=== PATIENT | female | born 1985 | race Caucasian/White ===

== ENCOUNTER 2019-04-14 18:34 | Inpatient (IN) ==
[2019-04-14] MEDS ORDERED: ONDANSETRON INJ 2 MG/ML 2 ML VIAL IV PRN (21:25)
[2019-04-14] MEDS ORDERED: LACTATED RINGER'S 1,000 ML IV ONE (21:25)
--- NOTE | 2019-04-14 21:28 | Labor Progress Brief Note ---
Date of Service April 14, 2019 here for labor check. CTX irreg. Cx 1cm, 50% after 2 checks about 2 hours apart. Sig nausea, so offered Iris, she agrees Results & Data Vital Signs (Past 12 Hours) Vital Signs Temp Pulse Resp BP 04/14/19 21:00 20 04/14/19 19:30 20 04/14/19 19:06 98.2 F 20 04/14/19 19:00 20 04/14/19 18:42 98.2 F 82 20 123/79
[2019-04-14] MEDS ORDERED: BUTORPHANOL TARTRATE 1 MG/ML VIAL IV PRN (22:35)
[2019-04-14] MEDS ORDERED: OXYTOCIN 30 UNITS/500 ML BAG IV PRN (22:38)
[2019-04-14] MEDS: LACTATED RINGER'S 1,000 ML IV PRN (22:59)
[2019-04-14 23:01] LABS: Hematocrit (blood only) 39.7 % (37-47); Hemoglobin 14.1 g/dL (12.0-16.0); Mean Corpuscular Hemoglobin 33.8 pg (25-34); Mean Corpuscular Hgb Conc 35.5 g/dL (32-36); Mean Corpuscular Volume 95.2 fL (80-100); Mean Platelet Volume 10.7 fL (7.4-10.4); Platelet Count 210 K/uL (130-400); RDW Coefficient of Variation 13.6 % (11.5-14.5); RDW Standard Deviation 47.2 fL (36.4-46.3); Red Blood Count 4.17 M/uL (4.2-5.4); White Blood Count 14.52 K/uL (4.8-10.8)
[2019-04-14] MEDS ORDERED: ePHEDrine sulfate 50 MG/ML AMP ONE (23:44)
[2019-04-14] MEDS ORDERED: fentaNYL citrate 100 MCG/2 ML VIAL ONE (23:44)
[2019-04-14] MEDS ORDERED: BUPIVACAINE 0.25% 30 ML VIAL ONE (23:45)
[2019-04-14] MEDS ORDERED: fentaNYL 2MCG/ML ROPIV 1.25MG/ML 100 ML BAG EPI ONE (23:45)
[2019-04-15] MEDS ORDERED: DiphenhydrAMINE HCL 50 MG/ML VIAL IV PRN (00:59)
[2019-04-15] MEDS ORDERED: ePHEDrine sulfate 50 MG/ML AMP IV PRN (00:59)
[2019-04-15] MEDS ORDERED: NALOXONE HCL 0.4 MG/1 ML VIAL/CARP IV PRN (00:59)
[2019-04-15] MEDS ORDERED: PROMETHAZINE HCL 6.25 MG in SODIUM CHLORIDE 0.9% 50 ML IV PRN (00:59)
[2019-04-15] MEDS ORDERED: NALOXONE HCL 1 MG in SODIUM CHLORIDE 0.9% 1000ML 1,000 ML IV PRN (00:59)
[2019-04-15] MEDS ORDERED: ONDANSETRON INJ 2 MG/ML 2 ML VIAL IV PRN (00:59)
[2019-04-15] MEDS ORDERED: NALBUPHINE HCL INJ 10 MG/ML AMP IV PRN (00:59)
[2019-04-15] MEDS ORDERED: fentaNYL 2MCG/ML ROPIV 1.25MG/ML 100 ML BAG EPI PRN (00:59)
--- NOTE | 2019-04-15 01:05 | Anesthesiology Consultation ---
Date of Service April 15, 2019 Assessment & Plan (1) Encounter for pre-operative examination: Chart Review Chart Review: Acceptable Risk for Surgery and Patient NOT seen in Pre Admission Testing Consults Requested none ASA ASA2 Proposed Anesthesia Anesthesia Type: Labor Epidural Risk / Benefits Reviewed With: PT / POA / Parent / Guardian, Accepts Plan and Informed Consent Obtained History Height/Weight Height: 5 ft 2 in Weight: 73.482 kg Allergies Allergy/AdvReac Type Severity Reaction Status Date / Time No Known Drug Allergies Allergy Verified 04/02/19 08:45 Medications Home Medications Medication Instructions Recorded Confirmed Last Taken PNV [id number]#95-ferrous fumarate-FA 1 tab PO DAILY 04/14/19 04/14/19 04/14/19 [] ferrous gluconate 236 mg PO DAILY 04/14/19 04/14/19 04/14/19 Active Medications Generic Name Dose Route Start Last Admin Trade Name Freq PRN Reason Stop Dose Admin Lactated Ringer's 1,000 mls @ 125 mls/hr 04/14/19 22:38 04/15/19 00:58 Lr IV 04/16/19 22:37 999 mls/hr .Q8H PRN Infusion L&D Protocol Protocol Ondansetron HCl 4 mg 04/14/19 21:25 04/14/19 21:41 Zofran IV 05/14/19 21:24 4 mg Q4H PRN Administration Nausea Past Medical History Medical History H/O wisdom tooth extraction (~10/30/13) Varicella Exercise / Class Metabolic Activity II 4-5 Yardwork/Stairs/Walk up hill Past Family History Family History Father Depression Aunt Breast cancer Grandmother (Paternal) Breast cancer Grandfather (Maternal) Hypertension Mother Ovarian cyst Past Surgical History Surgical History No pertinent past surgical history Past Anesthesia History No Hx of Anesthesia Complications and No Family Hx of Anesthesia Complications History of PONV No Hx of PONV and No Hx of Motion Sickness Social History Smoking Status: Never smoker Hx Alcohol Use: No Hx Substance Use: No Physical Exam Vital Signs Last Vital Signs Temp 36.4 C L 04/15/19 00:38 Pulse 92 H 04/15/19 01:03 Resp 20 04/15/19 00:38 BP 119/76 04/15/19 01:00 Pulse Ox 100 04/15/19 01:03 ENMT Mouth: no dentition abnormality Thyromental Distance: > or= 3.5 Finger Breadths Mallampati Class: II Neck normal visual inspection Respiratory normal respiratory effort Auscultation: lungs clear to auscultation bilaterally Cardiovascular Rate/Rhythm: regular rate and regular rhythm Psychiatric Orientation: alert Testing Laboratory Results 04/14/19 22:48
[2019-04-15] MEDS: LACTATED RINGER'S 1,000 ML IV PRN (03:02)
--- NOTE | 2019-04-15 06:51 | Labor Progress Brief Note ---
Date of Service April 15, 2019 heart rate category 1 patient has epidural she is doing well she has a bulging bag of membranes it was not sure her membranes ruptured last night as well she is fully dilated -1 station she is comfortable at this time Results & Data Vital Signs (Past 12 Hours) Vital Signs Temp Pulse Resp BP Pulse Ox 04/15/19 06:48 105 H 96 04/15/19 06:45 99.0 F 18 04/15/19 06:43 98 H 95 04/15/19 06:41 98 H 90 04/15/19 06:38 91 H 93 04/15/19 06:36 109 H 112/55 L 04/15/19 06:33 91 H 92 04/15/19 06:28 94 H 93 04/15/19 06:27 96 H 110/56 L 04/15/19 06:23 97 H 94 04/15/19 06:18 90 92 04/15/19 06:16 93 H 104/53 L 04/15/19 06:13 99 H 91 04/15/19 06:12 99 H 90 04/15/19 06:08 92 H 93 04/15/19 06:07 90 110/53 L 04/15/19 06:03 97 H 92 04/15/19 05:58 97 H 93 04/15/19 05:56 98 H 108/53 L 04/15/19 05:53 94 H 93 04/15/19 05:48 95 H 94 04/15/19 05:46 90 104/52 L 04/15/19 05:43 96 H 91 04/15/19 05:38 95 H 93 04/15/19 05:37 90 101/50 L 04/15/19 05:33 95 H 92 04/15/19 05:28 99 H 94 04/15/19 05:26 100 H 105/59 L 04/15/19 05:23 106 H 92 04/15/19 05:18 103 H 100 04/15/19 05:16 96 H 125/68 04/15/19 05:13 106 H 96 04/15/19 05:10 120 H 79 L 04/15/19 05:08 113 H 99 04/15/19 05:07 102 H 133/72 04/15/19 05:03 103 H 97 04/15/19 04:58 113 H 98 04/15/19 04:57 123 H 131/83 04/15/19 04:53 104 H 98 04/15/19 04:48 103 H 97 04/15/19 04:47 98 H 125/79 04/15/19 04:43 107 H 97 04/15/19 04:38 106 H 97 04/15/19 04:37 105 H 123/69 04/15/19 04:33 113 H 95 04/15/19 04:28 106 H 96 04/15/19 04:26 95 H 135/70 04/15/19 04:23 113 H 96 04/15/19 04:20 98.8 F 18 04/15/19 04:18 102 H 99 04/15/19 04:17 107 H 129/76 04/15/19 04:13 99 H 99 04/15/19 04:08 94 H 99 04/15/19 04:06 110 H 119/72 04/15/19 04:03 106 H 98 04/15/19 03:58 111 H 99 04/15/19 03:56 96 H 123/67 04/15/19 03:53 103 H 98 04/15/19 03:48 111 H 99 04/15/19 03:46 101 H 121/64 04/15/19 03:43 101 H 99 04/15/19 03:38 110 H 99 04/15/19 03:36 105 H 125/71 04/15/19 03:33 97 H 99 04/15/19 03:28 98 H 97 04/15/19 03:27 100 H 121/59 L 04/15/19 03:23 103 H 99 04/15/19 03:18 103 H 99 04/15/19 03:16 104 H 119/70 04/15/19 03:13 100 H 99 04/15/19 03:08 113 H 98 04/15/19 03:07 100 H 117/70 04/15/19 03:06 98 H 127/69 04/15/19 03:03 108 H 95 04/15/19 03:02 106 H 94 04/15/19 02:58 110 H 96 04/15/19 02:57 103 H 114/61 04/15/19 02:53 102 H 96 04/15/19 02:48 103 H 96 04/15/19 02:46 100 H 122/58 L 04/15/19 02:43 100 H 96 04/15/19 02:38 99 H 98 04/15/19 02:37 98.6 F 99 H 18 94 04/15/19 02:36 97 H 110/55 L 04/15/19 02:33 93 H 94 04/15/19 02:31 92 H 94 04/15/19 02:28 85 110/55 L 96 04/15/19 02:23 96 H 96 04/15/19 02:22 89 94 04/15/19 02:18 84 97 04/15/19 02:16 91 H 101/55 L 04/15/19 02:15 91 H 94 04/15/19 02:13 84 95 04/15/19 02:08 89 93 04/15/19 02:06 93 H 111/55 L 04/15/19 02:03 91 H 96 04/15/19 01:58 91 H 96 04/15/19 01:56 90 110/59 L 04/15/19 01:53 87 97 04/15/19 01:48 92 H 97 04/15/19 01:46 88 107/56 L 04/15/19 01:43 96 H 96 04/15/19 01:38 79 96 04/15/19 01:36 85 111/55 L 04/15/19 01:33 77 98 04/15/19 01:28 86 98 04/15/19 01:27 82 113/59 L 04/15/19 01:23 88 99 04/15/19 01:18 98 H 124/57 L 100 04/15/19 01:13 90 100 04/15/19 01:08 93 H 100 04/15/19 01:06 95 H 115/77 04/15/19 01:04 91 H 152/81 H 04/15/19 01:03 92 H 100 04/15/19 01:00 96 H 119/76 04/15/19 00:58 96 H 126/82 100 04/15/19 00:54 142 H 183/118 H 04/15/19 00:53 98 H 100 04/15/19 00:50 89 128/69 04/15/19 00:48 79 95 04/15/19 00:46 91 H 142/70 H 88 L 04/15/19 00:44 103 H 133/77 04/15/19 00:43 86 100 04/15/19 00:38 97.5 F L 91 H 20 93 04/15/19 00:37 81 133/71 04/15/19 00:33 107 H 93 04/15/19 00:28 99 H 100 04/14/19 23:11 98.2 F 88 18 134/83 04/14/19 23:09 98.2 F 88 18 134/83 04/14/19 23:00 22 04/14/19 22:30 24 04/14/19 22:00 22 04/14/19 21:37 84 116/65 04/14/19 21:30 20 04/14/19 21:00 20 04/14/19 19:30 20 04/14/19 19:06 98.2 F 20 04/14/19 19:00 20
--- NOTE | 2019-04-15 08:41 | Labor Progress Brief Note ---
Date of Service April 15, 2019 Subjective Reason For Note: Routine Evaluation Assessment & Plan (1) Supervision of normal first : 33yo G1 at 40 weeks GA. Labor 1. Fetus: Cat 1 2: Labor: complete. Awaiting for urge to push 3. GBS negative 4. Vitals: WNL Physical Exam Genitourinary: OB Exam Abdomen: + vertex Manual OB Exam: + cervical dilation 10 cm, + cervical effacement 100%, + station 0 and + amniotic fluid meconium OB Exam Monitor Tracing: + external FHT monitor used, + external uterine monitor used and + category I Results & Data Vital Signs (Past 12 Hours) Vital Signs Temp Pulse Resp BP Pulse Ox 04/15/19 08:36 109 H 90 04/15/19 08:34 105 H 97 04/15/19 08:32 104 H 101/64 04/15/19 08:28 103 H 90 04/15/19 08:23 110 H 94 04/15/19 08:18 113 H 93 04/15/19 08:17 110 H 119/63 04/15/19 08:13 108 H 94 04/15/19 08:08 105 H 92 04/15/19 08:03 106 H 93 04/15/19 08:02 103 H 118/63 04/15/19 07:58 119 H 94 04/15/19 07:53 119 H 94 04/15/19 07:48 108 H 94 04/15/19 07:47 108 H 119/62 04/15/19 07:43 99 H 96 04/15/19 07:38 103 H 94 04/15/19 07:33 101 H 94 04/15/19 07:32 101 H 118/66 04/15/19 07:28 110 H 97 04/15/19 07:23 104 H 93 04/15/19 07:18 104 H 122/72 97 04/15/19 07:13 111 H 94 04/15/19 07:08 102 H 95 04/15/19 07:03 102 H 91 04/15/19 07:02 37.1 C 104 H 16 107/62 04/15/19 06:58 95 H 93 04/15/19 06:53 98 H 97 04/15/19 06:48 105 H 96 04/15/19 06:45 37.2 C 18 04/15/19 06:43 98 H 95 04/15/19 06:41 98 H 90 04/15/19 06:38 91 H 93 04/15/19 06:36 109 H 112/55 L 04/15/19 06:33 91 H 92 04/15/19 06:28 94 H 93 04/15/19 06:27 96 H 110/56 L 04/15/19 06:23 97 H 94 04/15/19 06:18 90 92 04/15/19 06:16 93 H 104/53 L 04/15/19 06:13 99 H 91 04/15/19 06:12 99 H 90 04/15/19 06:08 92 H 93 04/15/19 06:07 90 110/53 L 04/15/19 06:03 97 H 92 04/15/19 05:58 97 H 93 04/15/19 05:56 98 H 108/53 L 04/15/19 05:53 94 H 93 04/15/19 05:48 95 H 94 04/15/19 05:46 90 104/52 L 04/15/19 05:43 96 H 91 04/15/19 05:38 95 H 93 04/15/19 05:37 90 101/50 L 04/15/19 05:33 95 H 92 04/15/19 05:28 99 H 94 04/15/19 05:26 100 H 105/59 L 04/15/19 05:23 106 H 92 04/15/19 05:18 103 H 100 04/15/19 05:16 96 H 125/68 04/15/19 05:13 106 H 96 04/15/19 05:10 120 H 79 L 04/15/19 05:08 113 H 99 04/15/19 05:07 102 H 133/72 04/15/19 05:03 103 H 97 04/15/19 04:58 113 H 98 04/15/19 04:57 123 H 131/83 04/15/19 04:53 104 H 98 04/15/19 04:48 103 H 97 04/15/19 04:47 98 H 125/79 04/15/19 04:43 107 H 97 04/15/19 04:38 106 H 97 04/15/19 04:37 105 H 123/69 04/15/19 04:33 113 H 95 04/15/19 04:28 106 H 96 04/15/19 04:26 95 H 135/70 04/15/19 04:23 113 H 96 04/15/19 04:20 37.1 C 18 04/15/19 04:18 102 H 99 04/15/19 04:17 107 H 129/76 04/15/19 04:13 99 H 99 04/15/19 04:08 94 H 99 04/15/19 04:06 110 H 119/72 04/15/19 04:03 106 H 98 04/15/19 03:58 111 H 99 04/15/19 03:56 96 H 123/67 04/15/19 03:53 103 H 98 04/15/19 03:48 111 H 99 04/15/19 03:46 101 H 121/64 04/15/19 03:43 101 H 99 04/15/19 03:38 110 H 99 04/15/19 03:36 105 H 125/71 04/15/19 03:33 97 H 99 04/15/19 03:28 98 H 97 04/15/19 03:27 100 H 121/59 L 04/15/19 03:23 103 H 99 04/15/19 03:18 103 H 99 04/15/19 03:16 104 H 119/70 04/15/19 03:13 100 H 99 04/15/19 03:08 113 H 98 04/15/19 03:07 100 H 117/70 04/15/19 03:06 98 H 127/69 04/15/19 03:03 108 H 95 04/15/19 03:02 106 H 94 04/15/19 02:58 110 H 96 04/15/19 02:57 103 H 114/61 04/15/19 02:53 102 H 96 04/15/19 02:48 103 H 96 04/15/19 02:46 100 H 122/58 L 04/15/19 02:43 100 H 96 04/15/19 02:38 99 H 98 04/15/19 02:37 37.0 C 99 H 18 94 04/15/19 02:36 97 H 110/55 L 04/15/19 02:33 93 H 94 04/15/19 02:31 92 H 94 04/15/19 02:28 85 110/55 L 96 04/15/19 02:23 96 H 96 04/15/19 02:22 89 94 04/15/19 02:18 84 97 04/15/19 02:16 91 H 101/55 L 04/15/19 02:15 91 H 94 04/15/19 02:13 84 95 04/15/19 02:08 89 93 04/15/19 02:06 93 H 111/55 L 04/15/19 02:03 91 H 96 04/15/19 01:58 91 H 96 04/15/19 01:56 90 110/59 L 04/15/19 01:53 87 97 04/15/19 01:48 92 H 97 04/15/19 01:46 88 107/56 L 04/15/19 01:43 96 H 96 04/15/19 01:38 79 96 04/15/19 01:36 85 111/55 L 04/15/19 01:33 77 98 04/15/19 01:28 86 98 04/15/19 01:27 82 113/59 L 04/15/19 01:23 88 99 04/15/19 01:18 98 H 124/57 L 100 04/15/19 01:13 90 100 04/15/19 01:08 93 H 100 04/15/19 01:06 95 H 115/77 04/15/19 01:04 91 H 152/81 H 04/15/19 01:03 92 H 100 04/15/19 01:00 96 H 119/76 04/15/19 00:58 96 H 126/82 100 04/15/19 00:54 142 H 183/118 H 04/15/19 00:53 98 H 100 04/15/19 00:50 89 128/69 04/15/19 00:48 79 95 04/15/19 00:46 91 H 142/70 H 88 L 04/15/19 00:44 103 H 133/77 04/15/19 00:43 86 100 04/15/19 00:38 36.4 C L 91 H 20 93 04/15/19 00:37 81 133/71 04/15/19 00:33 107 H 93 04/15/19 00:28 99 H 100 04/14/19 23:11 36.8 C 88 18 134/83 04/14/19 23:09 36.8 C 88 18 134/83 04/14/19 23:00 22 04/14/19 22:30 24 04/14/19 22:00 22 04/14/19 21:37 84 116/65 04/14/19 21:30 20 04/14/19 21:00 20
[2019-04-15] MEDS ORDERED: DIPHTHERIA/TETANUS/PERTUSSIS 0.5 ML SYR/VIAL IM ONE (10:18)
[2019-04-15] MEDS ORDERED: BISACODYL 10 MG SUPP PR PRN (10:18)
[2019-04-15] MEDS ORDERED: ACETAMINOPHEN 325 MG TAB PO PRN (10:18)
[2019-04-15] MEDS ORDERED: BENZOCAINE 20% AER SPR 82.5 GM CAN EXT PRN (10:18)
[2019-04-15] MEDS ORDERED: OXYTOCIN 30 UNITS/500 ML BAG IV PRN (10:18)
[2019-04-15] MEDS ORDERED: SUPERCREAM 0.870% 15 GM JAR EXT PRN (10:18)
[2019-04-15] MEDS ORDERED: HYDROCORTISONE ACETATE 25 MG SUPP PR PRN (10:18)
--- NOTE | 2019-04-15 12:38 | Anesthesia Procedure Note ---
Date of Service April 15, 2019 Anesthesia Post Epidural Note Vital Signs Vital Signs: Temp Pulse Resp BP Pulse Ox 36.8 C 90 18 123/64 82 L 04/15/19 08:59 04/15/19 12:32 04/15/19 11:32 04/15/19 12:32 04/15/19 10:09 Pain Intensity Bilateral Abdomen: Pain Intensity: 5 Notes Mental Status: alert / awake / arousable and participated in evaluation Patient Amnestic to Procedure: Yes Nausea / Vomiting: adequately controlled Pain: adequately controlled Airway Patency, RR, SpO2: stable & adequate BP & HR: stable & adequate Hydration State: stable & adequate Neuraxial Anesthesia: was administered and sensory block is resolving Anesthetic Complications: no major complications apparent and Pt Satisfied with anesthetic care
[2019-04-15] MEDS: IBUPROFEN 600 MG TAB PO PRN (13:23)
--- NOTE | 2019-04-15 16:37 | Delivery Summary ---
DATE OF OPERATION: 04/15/2019 PROCEDURE: Normal spontaneous vaginal delivery with right labial laceration repair. SURGEON: Dr. Norberto Courtney. FENCE SETTER: Dr. Adali Dominguez, PGY-1. ESTIMATED BLOOD LOSS: 200 mL. DRAINS: None. FLUIDS: Continuous lactated ringer. URINE OUTPUT: Not measured. COMPLICATIONS: None. FINDINGS: Viable female infant with weight pending, Apgars of 8 and 9 at 1 and 5 minutes respectively. INDICATIONS: The patient is a 33-year-old G1, P0, admitted overnight in labor. The patient progressed in labor with artificial rupture of membranes for augmentation and progressed to complete-complete +2 station. She underwent artificial rupture of membranes for meconium-stained fluid. She received an epidural for anesthesia during her labor course. DESCRIPTION OF PROCEDURE: The patient progressed to 10 cm dilated, 100% effaced, +1 station, pushed over intact perineum with epidural anesthesia, delivered a viable female infant, weight and Apgars as noted above. Head of the delivered in YAZMIN position, restituted to right transverse. Nuchal cord x1 was noted which was converted to a body cord. Body and shoulders quickly followed. was noted to be vigorous soon after delivery. A 1-minute delayed cord clamping was initiated. The cord was then double clamped and cut. Cord blood was obtained. Attention was then turned to delivery of the placenta which was delivered intact with 3-vessel cord, gentle cord traction. On inspection of perineum, vagina and cervix, there was noted to be a small right labial laceration repaired with 2 interrupted stitch of 3-0 Vicryl. Needle, sponge and instrument counts were correct at the completion of the case with mother and stable in the immediate post-delivery. I attest to the content of the Intraoperative Record and any orders documented therein. Any exception s are noted below.
[2019-04-15] MEDS: DOCUSATE SODIUM 100 MG CAP PO SCH (21:10)
[2019-04-16] MEDS: IBUPROFEN 600 MG TAB PO PRN ×2 (05:23→12:01)
[2019-04-16 06:33] LABS: Hematocrit (blood only) 35.3 % (37-47); Hemoglobin 12.1 g/dL (12.0-16.0); Mean Corpuscular Hemoglobin 33.1 pg (25-34); Mean Corpuscular Hgb Conc 34.3 g/dL (32-36); Mean Corpuscular Volume 96.4 fL (80-100); Mean Platelet Volume 10.4 fL (7.4-10.4); Platelet Count 185 K/uL (130-400); RDW Coefficient of Variation 14.2 % (11.5-14.5); RDW Standard Deviation 50.1 fL (36.4-46.3); Red Blood Count 3.66 M/uL (4.2-5.4); White Blood Count 14.39 K/uL (4.8-10.8)
--- NOTE | 2019-04-16 07:06 | Obstetrical Progress Note ---
Date of Service <Adali Dominguez MD - Last Filed: 04/16/19 07:06> April 16, 2019 Assessment & Plan <Adali Dominguez MD - Last Filed: 04/16/19 07:06> (1) Encounter for care and examination after delivery: 33 yo with no PMH PPD1 s/p . - doing well this AM - continue teaching and supportive care with pain management - progressing toward discharge Day #:: 1 Subjective <Adali Dominguez MD - Last Filed: 04/16/19 07:06> Ambulation: ambulating normally Voiding: no voiding problems Passing Gas:: Yes Diet Tolerance:: regular diet Feeding Type:: breast feeding Current Pain Level(1-10): 0 Constitutional: + fatigue; no fever and no chills Respiratory: no cough and no dyspnea No shortness of breath Cardiovascular: + edema; no chest pain, no syncope and no calf pain Breast: no breast pain Gastrointestinal: + cramping; no abdominal pain, no nausea, no vomiting, no constipation and no diarrhea/loose stools Genitourinary (female): no dysuria and no difficulty urinating Neurologic: no headache(s) Physical Exam <Adali Dominguez MD - Last Filed: 04/16/19 07:06> Constitutional well developed and well nourished Respiratory normal respiratory effort; no respiratory distress, no labored breathing and no cough Auscultation: no crackles, no rales, no rhonchi and no wheezes Cardiovascular Rate/Rhythm: regular rate and regular rhythm Heart Sounds: no gallop, no murmur and no cardiac rub Extremities: + pedal edema Gastrointestinal (Abdomen) Inspection/Auscultation: + abdomen distended and normal bowel sounds Percussion/Palpation: abdomen soft; abdomen nontender and no guarding Genitourinary Uterus firm, palpable to right of umbilicus, some tenderness to palpation. Results & Data <Adali Dominguez MD - Last Filed: 04/16/19 07:06> Vital Signs (Past 12 Hours) Vital Signs Temp Pulse Pulse Resp BP BP 04/16/19 05:10 36.9 C 80 18 115/79 04/16/19 00:05 36.5 C 97 H 18 119/65 04/15/19 19:40 36.9 C 96 H 18 123/77 <Norberto D. Kraft, MD - Last Filed: 04/16/19 08:16> Co-Signing Physician Notes Patient seen and evaluated and agree with the above findings and plan. Doing well. Continue routine care. Resident Activity Tracking <Adali Dominguez MD - Last Filed: 04/16/19 07:06> Resident Involvement: Resident Care Provided Care Provided: OB Delivery
[2019-04-16] MEDS: DOCUSATE SODIUM 100 MG CAP PO SCH (08:29)
[2019-04-16] MEDS: PRENATAL VITAMIN 1 TAB PO SCH (08:29)
[2019-04-16] MEDS ORDERED: BISACODYL 5 MG TABEC PO SCH (20:00)
[2019-04-17 06:47] LABS: Hematocrit (blood only) 36.4 % (37-47); Hemoglobin 12.6 g/dL (12.0-16.0)
--- NOTE | 2019-04-17 07:18 | Obstetrical Progress Note ---
Date of Service <Adali Dominguez MD - Last Filed: 04/17/19 07:18> April 17, 2019 Assessment & Plan <Adali Dominguez MD - Last Filed: 04/17/19 07:18> (1) Encounter for care and examination after delivery: 33 yo with no PMH PPD2 s/p . - doing well this AM - fatigued secondary to overnight cluster feeds, however overall doing well. - Ambulating, tolerating regular diet, moving bowels and bladder, . - discharging home today. Subjective <Adali Dominguez MD - Last Filed: 04/17/19 07:18> Ambulation: ambulating normally Voiding: no voiding problems Passing Gas:: Yes Diet Tolerance:: regular diet Feeding Type:: breast feeding Current Pain Level(1-10): 0 Constitutional: + fatigue; no fever and no chills Respiratory: no cough and no dyspnea No shortness of breath Cardiovascular: + edema; no chest pain, no syncope and no calf pain Breast: no breast pain Gastrointestinal: + cramping; no abdominal pain, no nausea, no vomiting, no constipation and no diarrhea/loose stools Genitourinary (female): no dysuria and no difficulty urinating Neurologic: no headache(s) Physical Exam <Adali Dominguez MD - Last Filed: 04/17/19 07:18> Constitutional well developed and well nourished Respiratory normal respiratory effort; no respiratory distress, no labored breathing and no cough Auscultation: no crackles, no rales, no rhonchi and no wheezes Cardiovascular Rate/Rhythm: regular rate and regular rhythm Heart Sounds: no gallop, no murmur and no cardiac rub Extremities: + pedal edema Gastrointestinal (Abdomen) Inspection/Auscultation: + abdomen distended and normal bowel sounds Percussion/Palpation: abdomen soft; abdomen nontender and no guarding Genitourinary Uterus nontender to palpation, firm at level of umbilicus Results & Data <Adali Dominguez MD - Last Filed: 04/17/19 07:18> Vital Signs (Past 12 Hours) Vital Signs Temp Pulse Resp BP 04/17/19 01:40 36.7 C 92 H 18 114/72 04/16/19 20:02 37.2 C 99 H 18 137/80 <Kassidy Trejo MD, FACOG - Last Filed: 04/17/19 07:22> Co-Signing Physician Notes Resident Physician Supervision Note: I interviewed and examined the patient. Discussed with Dr. Dominguez and agree with findings and plan as documented in the note. Any exceptions or clarifications are listed here: Doing well. Plan d/c. Instructions given. Documented By: Kassidy Trejo MD, FACOG Resident Activity Tracking <Adali Dominguez MD - Last Filed: 04/17/19 07:18> Resident Involvement: Resident Care Provided Care Provided: OB Delivery
[2019-04-17] MEDS: PRENATAL VITAMIN 1 TAB PO SCH (08:51)
[2019-04-17] MEDS: DOCUSATE SODIUM 100 MG CAP PO SCH (08:52)
== END 2019-04-17 14:58 | disposition home or self-care (01) | DRG 807 ==
LOC: OPB 18:34 → 4S1 18:36 → 4S2 04-15 13:22

== ENCOUNTER 2021-12-30 07:47 | Inpatient (IN) ==
[2021-12-30] MEDS ORDERED: OXYTOCIN 30 UNITS/500 ML BAG IV PRN ×3 (07:50→17:42)
[2021-12-30] MEDS ORDERED: LACTATED RINGER'S 1,000 ML IV PRN (07:50)
[2021-12-30 08:15] LABS: Hematocrit (blood only) 37.5 % (34.1-44.9); Hemoglobin 12.9 g/dl (12.0-16.0); Mean Corpuscular Hemoglobin 31.9 pg (25.0-34.0); Mean Corpuscular Hgb Conc 34.4 g/dL (32.0-36.0); Mean Corpuscular Volume 92.8 fL (80.0-100.0); Platelet Count 246 K/uL (130-400); RDW Coefficient of Variation 13.4 % (11.5-14.5); RDW Standard Deviation 45.4 fL (36.4-46.3); Red Blood Count 4.04 M/uL (3.93-5.22); White Blood Count 10.03 K/ul (4.8-10.8)
--- NOTE | 2021-12-30 09:05 | History & Physical Report ---
Date of Service December 30, 2021 Assessment & Plan (1) Supervision of normal first : (2) Elderly multigravida: (3) Term : Plan 36yo at 40w5d GA. IOL for late term 1. Fetus: Cat 1 2. Labor: Pitocin. AROM when appropriate 3. GBS negative 4. Vitals: Normal Admission and Anticipated Discharge Date Admission Date: December 30, 2021 History of Present Illness Primary Care Provider: Denis Graham DO 36yo at 40w5d GA. Presents for IOL for late term . c omplicated by AMA. [facility] [address], [id number] Obstetrics Visit Signed Patient:AMBER ROPER Service Date:12/29/21 MR#:[id number] Ref Phy:Norberto Courtney MD Acct ID:[id number] Jeanette Phy:Denis Graham DO Date:1985 Location:[facility] cc: Norberto Courtney MD~ *NOTICE TO RECEIVING DEMOCRAT/AGENCY This information is strictly Confidential and protected under [place] law. [place] law prohibits you from making any further disclosure of this information unless further disclosure is expressly permitted by the written consent of the person to whom it pertains or is authorized by law. A general authorization for the release of medical or other information is not sufficient for this purpose. Physician Practice accepts no responsibility if the information is made available to any other person, INCLUDING THE PATIENT. Medical Wharf Tender Wharf Tender Determination Visit Includes a Sensitive Exam of the Pt/Pt Requested: Yes Pt Informed of [facility]'s Recommendation for a Medical Wharf Tender: Yes Presence of a Medical Wharf Tender: Accepts Visit RAFAEL Calculator Estimated Delivery Date Method Current WG Current Estimate 12/25/21 LMP (Certain) 40w 4d Other Estimates 12/26/21 Ultrasound #1 40w 3d LMP: 12/28/20 : 2 Full term: 1 Premature: 0 Total Number of Induced Abortions: 0 Total Number of Spontaneous Abortions: 0 Ectopics: 0 Multiple births: 0 Number of Living Children: 1 and Delivery Plans AMA Weekly NST's @ 36 weeks Possible placenta accessory lobe IOL 12/30 OB Visit Log Initial Weight:132 lb 6.4 oz Date EGA Weight FH Pres FHR FM CX BP Alb Glu Edema NOV Prov Notes 05/17/21 8w 2d Nob nurse visit via phone consult.See comments. AH 06/24/21 13w 5d 132 lb 6.4 oz(+0 oz) 13 +US cl/th 122/84 0 2w JBS Nob labs, uacs, unsur e genetic testing, SM 07/08/21 15w 5d 132 lb 2 oz(-4.4 oz) 16 US 122/68 0 4w JDK will do gtt another d ay, unsure afp-SB 08/05/21 19w 5d 132 lb 3.2 oz(-3.2 oz) us Active 1 Neg Neg 0 4w JFD OC 09/02/21 23w 5d 140 lb(+7 lb 9.6 oz) US Active 110 /70 Neg Neg 0 4w JDK SB 09/30/21 27w 5d 146 lb 4 oz(+13 lb 13.6 oz) 27 130s Active 112/64 0 2w MLN 28wk labs, uacs, TDa P, papers -SB 10/14/21 29w 5d 149 lb(+16 lb 9.6 oz) 29 130s Active 126/7 2 Neg Neg 0 2w MLN MK 11/01/21 32w 2d 151 lb 6.4 oz(+19 lb) 32 130s Active 114/6 6 Neg Neg 0 2w MLN 11/17/21 34w 4d 154 lb 8 oz(+22 lb 1.6 oz) 35 130s Active 128/78 Neg Neg 0 1w AK MK AL 11/22/21 35w 2d 154 lb 2 oz(+21 lb 11.6 oz) 36 130s Active 122/76 Neg Neg 0 1w MLN 11/29/21 36w 2d 157 lb(+24 lb 9.6 oz) 36 V nst Active 120/78 N eg Neg 0 1w [facility] GBS today, NST #1 AMA - AL 12/07/21 37w 3dB 157 lb 6.4 oz(+25 lb) Term V NST Active 118/74 Neg Neg 0 1w MLN NST #2 AMA- 12/14/21 38w 3d 160 lb(+27 lb 9.6 oz) 38 V NST Active 118/80 N eg Neg 0 1w JDK NST #3 AMA - AL 12/22/21 39w 4d 159 lb 9.6 oz(+27 lb 3.2 oz) term V NST Active 132/84 Neg Neg 0 1w JFD NST #4, AMA, maria del carmen garcia, 12/27/21 40w 2d 162 lb 12.8 oz(+30 lb 6.4 oz) V nst Ac tive ft/post 122/70 Neg Neg 0 Other: SMP NST #5 decreased move ment, cervix check -OC 12/29/21 40w 4d 162 lb 6.4 oz(+30 lb) 124/76 N eg Neg JDK Cervix check- MK Comments Visit Date: 12/27/21 Last Updated by: Katey Dalton ACUTE: poor fm but then did get good mvmt count. since 12/21 having congestion, cough and malaise, no fever, requesting earlier induction date. no sooner date avail. nst reactive. home tests negative for covid. will get pcr today. did not tolerate exam too well, discussed rosales ripening balloon and rationale behind. will see if earlier date for induction arises and move up pt if we can. otherwise keep mont and induction. Visit Date: 12/22/21 Last Updated by: Jey Gasca earliest avail induction next . So scheduled Alma rutherford Visit Date: 12/14/21 Last Updated by: Norberto Courtney Doing well. Labor precautions reviewed. NST reactive Visit Date: 12/07/21 Last Updated by: Daron Pablo Patient states feeing well. Denies contractions, leaking of fluid, and states feeing movement. GBS negative; reviewed with patient. NST reactive today. Continue weekly NSTs Visit Date: 11/29/21 Last Updated by: Kassidy Trejo no n/v, +pnv. NOtes some irregular contractions last week. cephalic by ultrasound. gbs done. Visit Date: 11/22/21 Last Updated by: Daron Pbalo Patient states feeling well. Denies contractions, leaking of fluid, and states feeling movement. Will start weekly NSTs for AMA next visit as well as GBS Visit Date: 11/17/21 Last Updated by: Kassidy Trejo no issues , no n/v. +pnv. gbs next visit and start nsts. Taking a [address] to [place] next week[address] Will take pnr. Visit Date: 11/01/21 Last Updated by: Daron Pablo Patient states feeling well. Denies contractions, leaking of fluid, and states feeling movement. No complaints today Visit Date: 10/14/21 Last Updated by: Daron Pablo Patient states feeling well. Denies contractions, leaking of fluid, and states feeling movement. Patient states just having more tiredness but no complaints. 28wk labs reviewed Visit Date: 09/30/21 Last Updated by: Daron Pablo Patient states feeling well. Denies contractions, leaking of fluid, and states feeling movement. States having some round ligament pain; recommendations given on comfort/relief measures. 28wk labs/GTT and Tdap today Visit Date: 09/02/21 Last Updated by: Norberto Courtney Anatomy complete and normal as seen. Possible placenta accessory lobe. Doing well. Visit Date: 08/05/21 Last Updated by: Jey Gasca labs reviewed needs rescan of fetus next visit Visit Date: 07/08/21 Last Updated by: Norberto Courtney Doing well. Visit Date: 06/24/21 Last Updated by: Danielle Puentes Didn't do CF/SMA last , will do this time. Did cfDNA last time and will do again. Dated by LMP c/w formal first trimester scan this time, added US info to this note today. Visit Date: 05/17/21 Last Updated by: Sallie Noble Patient conceived on oc's, states she may have skipped a few pills & had been on antibiotic. To do dating u/s per Dr. Ly. Nursing Visit Reasons:NST/MARKIE 1W IOL 7-14 Allergies No Known Drug Allergies Allergy (Verified 12/29/21 09:11) Medications vit no.95-ferrous fumarate 28 mg-folic acid 800 mcg tablet () 1 tab PO DAILY 04/14/19 [History Confirmed 12/29/21] LMP: 12/28/20 Patient Confirmed : Yes General Travel Information Hx Out of Country or Outbreak Area Travel in Last 30 Days: No Exposure Risk Identification Exposure to Anyone Dx Infectious Disease: No Symptom Evaluation Are You having any Infectious Disease Symptoms: No Infectious Disease Testing Hx Infectious Disease Testing in Last 30 Days: No [facility] Medical History(Updated 12/22/21 @ 09:31 by Ne Andrew) Encounter for care and examination after delivery Encounter for pre-operative examination Prolonged , antepartum Supervision of normal first Varicella Surgical History H/O wisdom tooth extraction (~10/30/13) Family History Father DepressionAunt Breast cancerGrandmother (Paternal) Breast cancerGrandfather (Maternal) HypertensionMother Ovarian cystDenies family history of Ovarian cancer Colorectal cancer Social History Smoking Status: Never smoker Second Hand Exposure: No; Hx Alcohol Use: No Hx Substance Use: No Preferred Language: Afghan Communication Ability: Effective Visual Impairment: Diminished Hearing Ability: Normal Safety Deposit Supervisor Required: No Beliefs That Will Affect Care: None marital status: marital status details: Jeanette Roper (34) [phone] Current Living Situation: Spouse and Family Current Living Situation Comment: lives with spouse, daughter, no pets current occupational status: employed 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 Feels Safe at Home: Yes Childhood Exposure to Second-Hand Smoke: Yes caffeine: Yes Dental Care, Regularly: No Physical Activity Frequency: Daily Physical Activity Frequency Comment: walking Seatbelt Use: always Sunscreen Use: Yes Assistive Devices: None History : 2 Full term: 1 Premature: 0 Total Number of Induced Abortions: 0 Total Number of Spontaneous Abortions: 0 Ectopics: 0 Multiple births: 0 Number of Living Children: 1 Menstrual History Last menstrual period: Yes Menstrual reliability: definite Flow: normal Menstrual regularity: regular Monthly: Yes Age at menarche: 15 On control pills at conception: Yes Date of positive home test: 04/19/21 Menstrual history comments: cycles 29-30 Details: klast pap 01/15/[address] Courtney Past Pregnancies Past Pregnancies Del. Date GA wks Lbr Lgth wt Sex Type del Anes Place Del Prov ? Comment 04/15/19 40 6lb 12oz. F Epi dural [facility] Dr. Courtney No Medical History Medical History: Diabetes: Neg, Hypertension: Neg, Heart Disease: Neg, Autoimmune Disease: Neg, Kidney Disease/UTI: Neg, Neurologic/Epilepsy: Neg, Psychiatric: Neg, Depression/PPD: Neg, Hepatitis/Liver Disease: Neg, Varicosities/Phlebitis: Neg, Thyroid Dysfunction: Neg, Trauma/Violence: Neg, History of Blood Transfusion: Neg, Hematologic Disorders: Neg, GI Disorders: Neg, Dermatologic Disorders: Neg, D (Rh) Sensitized: Neg, Pulmonary(TB, Asthma): Neg, Seasonal Allergies: Neg, Drug/Latex Allergic Reactions: Neg, Breast: Neg, CROSSING FLAGMAN Surgeries: Neg, Operations/Hospitalizations(Year/reason): Pos (wisdom teeth), Anesthesia Complications: Neg, Hx of abnml PAP: Neg, Uterine Anomaly/LINDA: Neg, Infertilitiy: Neg, ART treatment: Neg, Complications: Neg, Cancer: Neg, Relevant Family Hx: Neg and Other: Pos (+ chicken pox) Tobacco: Denies use Alcohol: Denies use Illicit/Recreational Drugs: Denies use Symptoms since LMP Symptoms since LMP: nausea Infection History & Risk Profile Infection History: Hx Chlamydia: No, Hx Genital Herpes: No, Hx Gonorrhea: No, Hx Hepatitis: No, Hx HIV/AIDS: No, Hx Human Papilloma Virus (HPV): No, Hx Syphilis: No, Hx Tuberculosis: No, Rash or viral illness since LMP: No and Prior GBS infected child: No Genetic Screening & General Laborer Genetic Screening/Teratology Counseling - Includes patient, baby's father, or anyone in either family with: Genetic Screening and General Laborer: Yes 1. Patient's age 35 years or older as of estimated date of delivery, No 2. Thalassemia (Yakut, Syriac, Mediterranean, or Background); MCV less than 80, No 3. Neural Tube Defect (Meningomyelocele, Spina Bifida, or Anencephaly), No 4. Hepatitis B,C, No 5. Down Syndrome, No 6. Jose Alfredo-Sachs (Ashkenazi Quaker, Cajun, Guyanese [place]), No 7. Danielle Disease (Ashkenazi Quaker), No 8. Familial Dysautonomia (Ashkenazi Quaker), No 9. Sickle Cell Disease or Trait (), No 10. Hemophilia or other blood disorders, No 11. Muscular Dystrophy, No 12. Cystic Fibrosis, No 13. Rosey's Chorea, No 14. Mental Retardation/Autism, No 15. Other inherited genetic or chromosomal disorder, No 16. Maternal Metabolic Disorder (EG,TYPE 1 Diabetes, PKU), No 17. Patient or baby's father had a child with defects not listed above, No 18. Recurrent loss or a stillbirth, No 19. Medications (including supplements, vitamins, herbs or otc drugs)/illicit/recreational drugs/alcohol since last menstrual period and No 20. Any other Comments/Counseling: spouse healthy, fm hx: mother-breast cancer, father-DM Initial Phyiscal Exam Initial Physical Examination Initial Physical Exam: 1. HEENT: normal, 4. Thyroid: normal, 5. Breasts: normal, 6. Lungs: normal, 7. Heart: normal, 8. Abdomen: normal, 9. Extremities: normal, 10. Skin: normal, 11. Lymph Nodes: normal, 12. Vulva: normal, 13. Vagina: normal, 14. Cervix: normal and 15. Adnexa: normal Source: [employer] Ed Second Trimester Education Checklist Second Trimester Education: Donating or Banking [place] Stem Cells: discussed Labs Lab Results OB Labs: Blood Type A Positive 06/24/21 Antibody Screen NEGATIVE 06/24/21 Hemoglobin 12.2 g/dL (12.0-16.0) 09/30/21 Hematocrit 36.9 % (37-47) L 09/30/21 Mean Corpuscular Volume 91.3 fL (80-100) 06/24/21 Platelet Count 327 K/uL (130-400) 06/24/21 Rubella IgG Antibody Immune (Immune) 06/24/21 Rapid Plasma Reagin Nonreactive (Nonreactive) 06/24/21 Hepatitis B Surface Antigen Neg (Neg) 06/24/21 Hepatitis C Antibody Neg (Neg) 06/24/21 HIV (1&2) Ab and P24 Ag, 4th Gener Neg (Neg) 06/24/21 Glucose 1 Hour 50 gm Load 91 mg/dl (70-130) 09/30/21 Maternal Serum Alpha Fetoprotein 63.9 ng/mL 07/21/21 OB Optional Labs: Chlamydia trachomatis RNA NOT DETECTED (NOT DETECTED) 06/24/21 Neisseria gonorrhoeae RNA NOT DETECTED (NOT DETECTED) 06/24/21 Alpha Fetoprotein Triple Screen SEE NOTE 07/21/21 Labs Reviewed: cf/sma neg--[facility] low risk panorama--[facility] afp--neg--[facility] Allergies Allergy/AdvReac Type Severity Reaction Status Date / Time No Known Drug Allergies Allergy Verified 12/29/21 09:11 Home Medications Medication Instructions Recorded Confirmed Type vit no.95-ferrous 1 tab PO DAILY 04/14/19 12/29/21 History fumarate 28 mg-folic acid 800 mcg tablet () Patient History Medical History (Updated 12/30/21 @ 09:05 by Norberto Courtney MD) Encounter for care and examination after delivery Encounter for pre-operative examination Prolonged , antepartum Supervision of normal first Varicella Surgical History H/O wisdom tooth extraction (~10/30/13) Family History Father Depression Aunt Breast cancer Grandmother (Paternal) Breast cancer Grandfather (Maternal) Hypertension Mother Ovarian cyst Denies family history of Ovarian cancer Colorectal cancer Social History Smoking Status: Never smoker Second Hand Exposure: No; Do You Dip or Chew Tobacco: No; Tobacco Cessation Education Requested by Patient: No Hx Alcohol Use: No Hx Substance Use: No Preferred Language: Afghan Communication Ability: Effective Visual Impairment: Diminished Hearing Ability: Normal Safety Deposit Supervisor Required: No Beliefs That Will Affect Care: None marital status: marital status details: Jeanette Roper (34) [phone] Current Living Situation: Spouse Current Living Situation Comment: lives with spouse, daughter, no pets current occupational status: employed 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 Other Information That Helps Us Care for You: No Feels Safe at Home: Yes Safety Concerns: Feels Safe At This Time Childhood Exposure to Second-Hand Smoke: Yes caffeine: Yes Dental Care, Regularly: No Physical Activity Frequency: Daily Physical Activity Frequency Comment: walking Seatbelt Use: always Sunscreen Use: Yes Assistive Devices: Glasses Physical Exam Gastrointestinal (Abdomen): Percussion/Palpation: abdomen soft; abdomen nontender, no guarding and abdomen not rigid Genitourinary: Manual OB Exam: + cervical dilation (1.5), + cervical effacement 50% and + station -2 OB Exam Monitor Tracing: + external FHT monitor used, + external uterine monitor used, + category I and + normal FHT variability; no category II, no category III, no early decelerations present, no late decelerations present and no variable decelerations Results & Data ([facility]) Vital Signs (Past 12 Hours) Vital Signs Temp Pulse Resp BP 12/30/21 08:29 36.8 C 98 H 16 109/62 12/30/21 08:03 98 H 109/62 Coding Level of Care Code None Diagnoses Supervision of normal first Z34.00 Elderly multigravida O09.529 Term Z34.90
[2021-12-30] MEDS ORDERED: ePHEDrine sulfate 50 MG/ML AMP ONE (13:16)
[2021-12-30] MEDS ORDERED: BUPIVACAINE 0.25% 30 ML VIAL ONE (13:17)
[2021-12-30] MEDS ORDERED: fentaNYL citrate 100 MCG/2 ML VIAL ONE (13:17)
[2021-12-30] MEDS ORDERED: SODIUM CHLORIDE 0.9% INJ 10 ML VIAL ONE (13:17)
[2021-12-30] MEDS ORDERED: LIDOCAINE 2%/EPINEPHRINE 1:200,000 20 ML SDV ONE ×2 (13:17→13:21)
[2021-12-30] MEDS ORDERED: fentaNYL 2MCG/ML ROPIVACAINE 1.25MG/ML 100 ML BAG EPI ONE (13:19)
[2021-12-30] MEDS ORDERED: fentaNYL 2MCG/ML ROPIVACAINE 1.25MG/ML 100 ML BAG EPI PRN (13:53)
[2021-12-30] MEDS ORDERED: ePHEDrine sulfate 50 MG/ML AMP IV PRN (13:53)
[2021-12-30] MEDS ORDERED: diphenhydrAMINE 50 MG/ML VIAL IV PRN (13:53)
[2021-12-30] MEDS ORDERED: NALOXONE HCL 0.4 MG/1 ML VIAL/CARP IV PRN (13:53)
[2021-12-30] MEDS ORDERED: NALOXONE HCL 1 MG in SODIUM CHLORIDE 0.9% 1000ML 1,000 ML IV PRN (13:53)
[2021-12-30] MEDS ORDERED: NALBUPHINE HCL INJ 10 MG/ML AMP IV PRN (13:53)
[2021-12-30] MEDS ORDERED: ONDANSETRON INJ 2 MG/ML 2 ML VIAL IV PRN (13:53)
--- NOTE | 2021-12-30 13:55 | Anesthesiology Consultation ---
Date of Service December 30, 2021 Assessment & Plan (1) Encounter for pre-operative examination: Chart Review Chart Review: Patient NOT seen in Pre Admission Testing and Acceptable Risk for Labor Epidural Consults Requested none History Height/Weight Height: 5 ft 1 in Weight: 73.663 kg Allergies Allergy/AdvReac Type Severity Reaction Status Date / Time No Known Drug Allergies Allergy Unknown Unknown Verified 12/30/21 09:26 Medications Home Medications Medication Instructions Recorded Confirmed Last Taken prenat.vits,nathan,fwf-gocc-ocoaf 1 tab PO DAILY 12/30/21 12/30/21 12/29/21 Active Medications Generic Name Dose Route Start Last Admin Trade Name Freq PRN Reason Stop Dose Admin Oxytocin 30 units in 500 mls @ 12 mls/hr 12/30/21 07:50 12/30/21 12:05 Pitocin IV 01/01/22 07:49 0.72 units/hr .Q24H PRN 12 mls/hr Labor Induction/Augmentation Titration Protocol 0.72 UNITS/HR Lactated Ringer's 1,000 mls @ 125 mls/hr 12/30/21 07:50 12/30/21 13:40 Lr IV 01/01/22 07:49 999 mls/hr .Q8H PRN Infusion L&D Protocol Protocol Past Medical History Medical History Encounter for care and examination after delivery Encounter for pre-operative examination Prolonged , antepartum Supervision of normal first Varicella Exercise / Class Metabolic Activity II 4-5 Yardwork/Stairs/Walk up hill Past Family History Family History Father Depression Aunt Breast cancer Grandmother (Paternal) Breast cancer Grandfather (Maternal) Hypertension Mother Ovarian cyst Denies family history of Ovarian cancer Colorectal cancer Past Surgical History Surgical History H/O wisdom tooth extraction (~10/30/13) Social History Smoking Status: Never smoker Do You Dip or Chew Tobacco: No Hx Alcohol Use: No Hx Substance Use: No Physical Exam Vital Signs Last Vital Signs Temp 36.8 C 12/30/21 12:54 Pulse 83 12/30/21 14:11 Resp 16 07/14/22 12:54 BP 118/72 12/30/21 14:11 Pulse Ox 87 L 12/30/21 14:10 Testing Laboratory Results 12/30/21 08:04
--- NOTE | 2021-12-30 14:32 | Labor Progress Brief Note ---
Date of Service December 30, 2021 Assessment & Plan (1) Supervision of normal first : (2) Elderly multigravida: (3) Term : Plan 36yo at 40w5d GA. IOL for late term 1. Fetus: Cat 1 2. Labor: Pitocin. AROM clr 3. GBS negative 4. Vitals: Normal Admission and Anticipated Discharge Date Admission Date: December 30, 2021 Physical Exam Genitourinary: Manual OB Exam: + cervical dilation 2 cm, + cervical effacement 70%, + station -2 and + amniotic fluid clear OB Exam Monitor Tracing: + external FHT monitor used, + external uterine monitor used, + category I and + normal FHT variability; no early decelerations present, no late decelerations present and no variable decelerations Results & Data ([facility]) Vital Signs (Past 12 Hours) Vital Signs Temp Pulse Resp BP Pulse Ox 12/30/21 08:29 36.8 C 98 H 16 109/62 12/30/21 14:29 96 12/30/21 14:29 95 H 12/30/21 14:28 87 12/30/21 14:28 120/66 12/30/21 14:26 94 12/30/21 14:26 91 H 12/30/21 14:24 95 12/30/21 14:24 88 12/30/21 14:24 109/57 L 12/30/21 14:21 94 12/30/21 14:21 88 12/30/21 14:21 102/56 L 12/30/21 14:19 95 12/30/21 14:19 89 12/30/21 14:18 78 12/30/21 14:18 105/57 L 12/30/21 14:16 87 12/30/21 14:16 111/62 12/30/21 14:14 98 12/30/21 14:14 87 12/30/21 14:13 90 12/30/21 14:13 130/82 12/30/21 14:11 83 12/30/21 14:11 118/72 12/30/21 14:09 95 12/30/21 14:10 87 L 12/30/21 14:09 89 12/30/21 14:10 86 12/30/21 14:10 130/67 12/30/21 14:04 96 12/30/21 14:04 95 H 12/30/21 14:05 96 H 12/30/21 14:05 136/82 12/30/21 13:59 98 12/30/21 13:59 87 12/30/21 13:55 85 12/30/21 13:55 113/60 12/30/21 13:54 96 12/30/21 13:54 81 12/30/21 13:50 81 12/30/21 13:50 99/56 L 12/30/21 13:49 96 12/30/21 13:49 89 12/30/21 13:48 94 12/30/21 13:48 84 12/30/21 13:44 96 12/30/21 13:44 85 12/30/21 13:39 97 12/30/21 13:39 81 12/30/21 13:34 98 12/30/21 13:34 84 12/30/21 13:29 99 12/30/21 13:29 90 12/30/21 13:24 99 12/30/21 13:24 79 12/30/21 13:19 99 12/30/21 13:19 80 12/30/21 13:14 97 12/30/21 13:14 84 12/30/21 12:54 16 12/30/21 12:54 36.8 C 16 12/30/21 12:54 85 12/30/21 12:54 111/68 12/30/21 11:55 20 12/30/21 11:55 36.7 C 12/30/21 11:55 85 12/30/21 11:55 105/55 L 12/30/21 11:00 20 12/30/21 11:00 36.9 C 20 12/30/21 10:56 83 12/30/21 10:56 110/53 L 12/30/21 09:47 81 12/30/21 09:47 114/65 12/30/21 08:03 36.8 C 98 H 16 109/62 Coding Level of Care Code None Diagnoses Supervision of normal first Z34.00 Elderly multigravida O09.529 Term Z34.90
--- NOTE | 2021-12-30 17:39 | Anesthesiology Progress Note ---
Date of Service December 30, 2021 Anesthesia Post Procedure Vital Signs Vital Signs: Temp Pulse Resp BP Pulse Ox 12/30/21 17:25 86 20 114/61 12/30/21 08:29 36.8 C 98 H 16 109/62 12/30/21 17:34 90 12/30/21 17:34 135/67 12/30/21 17:29 36.4 C L 100 H 12/30/21 17:29 120/59 L 12/30/21 17:25 86 12/30/21 17:25 114/61 12/30/21 17:24 85 12/30/21 17:24 119/60 12/30/21 17:19 87 12/30/21 17:19 120/60 12/30/21 16:59 99 12/30/21 16:59 90 12/30/21 16:54 99 12/30/21 16:54 89 12/30/21 16:49 100 12/30/21 16:49 84 12/30/21 16:44 90 12/30/21 16:44 84 12/30/21 16:39 100 12/30/21 16:39 79 12/30/21 16:34 99 12/30/21 16:34 78 12/30/21 16:30 74 12/30/21 16:30 113/67 12/30/21 16:29 98 12/30/21 16:29 79 12/30/21 16:24 97 12/30/21 16:24 80 12/30/21 16:19 98 12/30/21 16:19 79 12/30/21 16:14 98 12/30/21 16:14 80 12/30/21 16:09 99 12/30/21 16:09 76 12/30/21 16:05 93 12/30/21 16:05 90 12/30/21 16:04 99 12/30/21 16:04 76 12/30/21 16:01 81 12/30/21 16:01 111/79 12/30/21 15:59 98 12/30/21 15:59 81 12/30/21 15:54 99 12/30/21 15:54 79 12/30/21 15:49 99 12/30/21 15:49 84 12/30/21 15:44 99 12/30/21 15:44 86 12/30/21 15:39 97 12/30/21 15:39 81 12/30/21 15:34 97 12/30/21 15:34 83 12/30/21 15:29 86 L 12/30/21 15:29 99 H 12/30/21 15:28 90 12/30/21 15:28 93 H 12/30/21 15:28 124/72 12/30/21 15:24 97 12/30/21 15:24 82 12/30/21 15:22 81 12/30/21 15:22 117/72 12/30/21 15:21 93 12/30/21 15:21 81 12/30/21 15:19 97 12/30/21 15:19 93 H 12/30/21 15:19 79 12/30/21 15:19 117/65 12/30/21 15:14 97 12/30/21 15:14 91 H 12/30/21 15:14 86 12/30/21 15:14 117/66 12/30/21 15:09 97 12/30/21 15:09 79 12/30/21 15:09 83 12/30/21 15:09 120/70 12/30/21 15:04 97 12/30/21 15:04 89 12/30/21 15:03 77 12/30/21 15:03 115/64 12/30/21 14:59 97 12/30/21 14:59 79 12/30/21 14:58 74 12/30/21 14:58 115/65 12/30/21 14:55 94 12/30/21 14:55 87 12/30/21 14:54 95 12/30/21 14:54 87 12/30/21 14:53 81 12/30/21 14:53 116/64 12/30/21 14:49 96 12/30/21 14:49 81 12/30/21 14:48 82 12/30/21 14:48 114/68 12/30/21 14:44 96 12/30/21 14:44 91 H 12/30/21 14:43 78 12/30/21 14:43 117/71 12/30/21 14:39 96 12/30/21 14:39 83 12/30/21 14:37 80 12/30/21 14:37 116/69 12/30/21 14:34 93 12/30/21 14:34 89 12/30/21 14:33 94 12/30/21 14:33 82 12/30/21 14:32 83 12/30/21 14:32 119/72 12/30/21 14:30 86 12/30/21 14:30 122/70 12/30/21 14:29 96 12/30/21 14:29 95 H 12/30/21 14:28 87 12/30/21 14:28 120/66 12/30/21 14:26 94 12/30/21 14:26 91 H 12/30/21 14:24 95 12/30/21 14:24 88 12/30/21 14:24 109/57 L 12/30/21 14:21 94 12/30/21 14:21 88 12/30/21 14:21 102/56 L 12/30/21 14:19 95 12/30/21 14:19 89 12/30/21 14:18 78 12/30/21 14:18 105/57 L 12/30/21 14:16 87 12/30/21 14:16 111/62 12/30/21 14:14 98 12/30/21 14:14 87 12/30/21 14:13 90 12/30/21 14:13 130/82 12/30/21 14:11 83 12/30/21 14:11 118/72 12/30/21 14:09 95 12/30/21 14:10 87 L 12/30/21 14:09 89 12/30/21 14:10 86 12/30/21 14:10 130/67 12/30/21 14:04 96 12/30/21 14:04 95 H 12/30/21 14:05 96 H 12/30/21 14:05 136/82 12/30/21 13:59 98 12/30/21 13:59 87 12/30/21 13:55 85 12/30/21 13:55 113/60 12/30/21 13:54 96 12/30/21 13:54 81 12/30/21 13:50 81 12/30/21 13:50 99/56 L 12/30/21 13:49 96 12/30/21 13:49 89 12/30/21 13:48 94 12/30/21 13:48 84 12/30/21 13:44 96 12/30/21 13:44 85 12/30/21 13:39 97 12/30/21 13:39 81 12/30/21 13:34 98 12/30/21 13:34 84 12/30/21 13:29 99 12/30/21 13:29 90 12/30/21 13:24 99 12/30/21 13:24 79 12/30/21 13:19 99 12/30/21 13:19 80 12/30/21 13:14 97 12/30/21 13:14 84 12/30/21 12:54 16 12/30/21 12:54 36.8 C 16 12/30/21 12:54 85 12/30/21 12:54 111/68 12/30/21 11:55 20 12/30/21 11:55 36.7 C 20 12/30/21 11:55 85 12/30/21 11:55 105/55 L 12/30/21 11:00 20 12/30/21 11:00 36.9 C 20 12/30/21 10:56 83 12/30/21 10:56 110/53 L 12/30/21 09:47 81 12/30/21 09:47 114/65 12/30/21 08:03 36.8 C 98 H 16 109/62 Transfer of Care Handoff Completed per policy Notes Mental Status: alert / awake / arousable and participated in evaluation Patient Amnestic to Procedure: Yes Nausea / Vomiting: adequately controlled Pain: adequately controlled Airway Patency, RR, SpO2: stable & adequate BP & HR: stable & adequate Hydration State: stable & adequate Neuraxial Anesthesia: was administered and sensory block is resolving Anesthetic Complications: no major complications apparent and Pt Satisfied with anesthetic care
[2021-12-30] MEDS ORDERED: ACETAMINOPHEN 325 MG TAB PO PRN (17:42)
[2021-12-30] MEDS ORDERED: HYDROCORTISONE ACETATE 25 MG SUPP PR PRN (17:42)
[2021-12-30] MEDS ORDERED: BENZOCAINE 20% AER SPR 82.5 GM CAN EXT PRN (17:42)
[2021-12-30] MEDS ORDERED: DIPHTHERIA/TETANUS/PERTUSSIS 0.5 ML SYR/VIAL IM ONE (17:42)
[2021-12-30] MEDS ORDERED: bisacodyL 10 MG SUPP PR PRN (17:42)
--- NOTE | 2021-12-30 22:39 | Delivery Summary ---
DATE OF SERVICE: 12/30/2021 PROCEDURE: Normal spontaneous vaginal delivery. SURGEON: Norberto Courtney MD PREOPERATIVE DIAGNOSES: 1. Single intrauterine at 40 weeks 5 days gestational age. 2. Advanced maternal age. POSTOPERATIVE DIAGNOSES: 1. Single intrauterine at 40 weeks 5 days gestational age. 2. Advanced maternal age. 3. Status post delivery. ESTIMATED BLOOD LOSS: 300 mL. DRAINS: Straight cath at the completion of the case. URINE OUTPUT: 50 mL via straight cath. COMPLICATIONS: None. FINDINGS: Viable female with weight pending and Apgars of 8 and 9 at one and five minutes respectively. INDICATIONS: Kelsi is a 36-year-old G2, P1, admitted at 40 weeks 5 days gestational age for induction of labor for late-term . On initial evaluation, the patient was found to be 1.5 cm dilated, 50% effaced, negative 2- 3 station. The patient was started on oxytocin per regular protocol. She later received an epidural and underwent artificial rupture of membranes for clear fluid. The patient progressed rapidly after rupture of membranes to complete- complete, +1 station, at which time she felt a strong urge to push. The patient pushed for approximately minutes to achieve delivery. DESCRIPTION OF PROCEDURE: The patient progressed to 10 cm dilated, 100% effaced, positive 2 station, pushed over intact perineum with epidural anesthesia and delivered a viable female with weight and Apgars as noted above. Head of the delivered in YAZMIN position, restituted to right transverse. No nuchal cord was noted. Body and shoulders quickly followed. was noted to be vigorous soon after delivery and a 1-minute delayed cord clamping was initiated. Cord was then double clamped and cut. remained on maternal abdomen. Cord blood was obtained. Attention was then turned to delivery of the placenta, which was delivered intact, 3-vessel cord, gentle cord traction. On inspection of the perineum, vagina, and cervix, there were noted to be no lacerations. Sponge and instrument counts were correct at the completion of the case. Both mother and were stable in the immediate post-delivery period. Job ID: [id number] [facility]
[2021-12-30] MEDS: DOCUSATE SODIUM 100 MG CAP PO SCH (23:22)
--- NOTE | 2021-12-31 06:27 | Obstetrical Progress Note ---
Date of Service <Reanna Hook - Last Filed: 12/31/21 07:12> December 31, 2021 Assessment & Plan <Reanna Hook - Last Filed: 12/31/21 07:12> (1) Status post vaginal delivery: continue OOB, ambulation, diet as tolerated <Norberto Courtney MD - Last Filed: 12/31/21 08:07> (1) Status post vaginal delivery: Subjective <Reanna Hook - Last Filed: 12/31/21 07:12> Kelsi is a 36 y/o female who is now PPD # 1 following vaginal delivery at 40 5/7. Reports feeling well overall this morning. Mild abdominal cramping, pain well managed on analgesics. Voiding. Tolerating meals overnight and able to ambulate some. Not passing gas and no bowel movements. Some persistent lochia with some improvement this morning. Breast feeding. Review of Systems Denies fever, chills, sweats Denies shortness of breath, difficulty breathing, chest pain, palpitations, chest pressure. Denies breast pain. Denies dysuria. Denies headache or changes in vision. Physical Exam <Reanna Hook - Last Filed: 12/31/21 07:12> General: Alert, oriented. No acute distress. Cardiac: Regular rate and rhythm, no murmurs/rubs/gallops. Respiratory: Clear to auscultation bilaterally a/p, no wheezes/rales/rhonchi. No increased work of breathing. Symmetrical chest rise. No respiratory distress. Abdomen: Soft, nontender, nondistended. Bowel sounds present. Uterus: Uterine fundus firm, palpable 2 cm below umbilicus. Lower Extremities: No lower extremity edema or swelling. No deep calf pain. Davis's negative bilaterally. Results & Data ([facility]) <Reanna Hook - Last Filed: 12/31/21 07:12> Vital Signs (Past 12 Hours) Vital Signs Temp Pulse Pulse Resp BP BP Pulse Ox 12/31/21 00:16 37.1 C 99 H 18 101/64 95 12/30/21 20:30 37 C 104 H 16 119/72 96 12/30/21 18:55 37.1 C 93 H 20 145/65 H 12/30/21 18:55 145/65 H 12/30/21 18:41 89 12/30/21 18:41 114/59 L 12/30/21 18:30 85 12/30/21 18:30 139/70 O2 Del Method 12/31/21 00:16 Room Air 12/30/21 20:30 Room Air 12/30/21 18:55 12/30/21 18:55 12/30/21 18:41 12/30/21 18:41 12/30/21 18:30 12/30/21 18:30 <Norberto Courtney MD - Last Filed: 12/31/21 08:07> Co-Signing Physician Notes Patient seen and evaluated with resident and agree with the above findings and plan. Patient doing well and stable for discharge Resident Activity Tracking <Reanna Hook DO - Last Filed: 12/31/21 07:12> Resident Involvement: Resident Care Provided Care Provided: OB Delivery (Post )
[2021-12-31] MEDS ORDERED: PRENATAL VITAMIN 1 TAB PO SCH (08:00)
[2021-12-31] MEDS: IBUPROFEN 600 MG TAB PO PRN ×2 (10:22→15:34)
[2021-12-31] MEDS: DOCUSATE SODIUM 100 MG CAP PO SCH (10:22)
[2021-12-31] MEDS ORDERED: bisacodyL 5 MG TABEC PO SCH (20:00)
== END 2021-12-31 19:34 | disposition home or self-care (01) | DRG 807 ==
LOC: 4S1 07:47 → 4E2 19:53